=== PATIENT | female | born 1970 | race Caucasian/White ===

== ENCOUNTER 2017-01-23 08:32 | Day surgery (SDC) | payer OTHER ==
[~2017-01-23] VITALS: Ht 162.6 cm; Wt 61.2 kg
[~2017-01-23 08:32] MED LIST: 0.9% Sodium Chloride 1,000 ML IV SCH; DIPH25CA6 PO; IBUP200C PO; OXYC-407 PO; Sodium Chloride LOK Flush 10 mL Syringe IV PRN; fentaNYL-PF 50 mCg/mL 2 mL Inj IVPUSH PRN
[2017-01-23 09:04] VITALS: BP 144/89; PULSE 68; RESP 16; O2SAT 100
[2017-01-23 10:12] VITALS: BP 122/72; PULSE 64; RESP 14; O2SAT 97
[2017-01-23 10:22] VITALS: BP 121/69; PULSE 68; RESP 14; O2SAT 97
[2017-01-23 10:27] VITALS: BP 142/86; PULSE 86; RESP 16; O2SAT 100
--- NOTE | 2017-01-23 22:43 | ENDO ---
[address] [address] ENDOSCOPY PROCEDURE PATIENT: MELY YIP : 1970 MR#: [id number] ADMIT: 01/23/2017 JOB ID: [id number] DATE OF PROCEDURE: 01/23/2017 PRIMARY PROVIDER: Edu Torres MD. PROCEDURE: Colonoscopy. INDICATIONS: A 46-year-old female with a family history of colon cancer reporting for screening. EQUIPMENT: [employer]. SEDATION: 1. Versed 7 mg. 2. Fentanyl 200 mcg. COMPLICATIONS: None identified. BOWEL PREPARATION: Excellent. PROCEDURE INFORMATION: After the risks and benefits were explained, written and verbal informed consent was obtained. The patient was brought into the endoscopy suite and placed into the left lateral decubitus position. Sedation was achieved as above. A digital rectal examination accomplished. Mild internal hemorrhoids were noted. No mass lesions detected. The scope was introduced into the rectum and advanced to the cecum as identified by the appendiceal orifice and ileocecal valve. The scope was slowly withdrawn to carefully examine the mucosa for any defects or lesions. Multiple direct views were made through the dentate line for exclusion of pathology. The colon was decompressed. The scope was removed from the patient who tolerated the procedure well. FINDINGS: Slightly tortuous sigmoid colon. No significant polyps, mass lesions, or inflammatory features identified throughout. Moderate internal hemorrhoidal engorgement was noted on direct views through the anal rectum. ENDOSCOPIC DIAGNOSES: 1. Moderate internal hemorrhoids. 2. Otherwise visually unremarkable colonoscopy. RECOMMENDATIONS: 1. Continue with conservative hemorrhoidal care as previously discussed. 2. Considering family history, repeat colonoscopy in five years.
== END 2017-01-23 23:59 | disposition home or self-care (01) ==
LOC: END 08:32
PROVIDERS: ATTEND Internal Medicine Gastroenterology
DX: Z80.0 Family history of malignant neoplasm of digestive organs (principal); Z12.11 Encounter for screening for malignant neoplasm of colon; K64.8 Other hemorrhoids
CPT/HCPCS: 99153; G0105; G0500; J2250; J3010; J7030